=== PATIENT | female | born 1990 | race Hispanic/Latino ===

== ENCOUNTER 2018-04-07 16:16 | Emergency (ER) | payer BC ==
[~2018-04-07] VITALS: Ht 170.2 cm; Wt 99.8 kg
[2018-04-07] MEDS ORDERED: DEXAMETHASONE SOD PHOS 10 MG/1 ML VIAL IV ONE (16:30)
== END 2018-04-07 16:41 | disposition home or self-care (01) ==
LOC: ER 16:16
DX: J02.0 Streptococcal pharyngitis (principal)
CPT/HCPCS: 99283; J1100

== ENCOUNTER 2021-09-11 13:49 | Emergency (ER) | payer SELFPAY ==
[~2021-09-11] VITALS: Ht 170.2 cm; Wt 99.8 kg
[2021-09-11] MEDS ORDERED: CASIRIVIMAB/IMDEVIMAB 10 ML in SODIUM CHLORIDE 0.9% 100 ML IV ONE (15:45)
[2021-09-11] MEDS ORDERED: ACETAMINOPHEN 325 MG TAB ONE (16:13)
[2021-09-11] MEDS ORDERED: ACETAMINOPHEN 325 MG TAB PO ONE (16:30)
== END 2021-09-11 17:20 | disposition home or self-care (01) ==
LOC: ER 13:55
DX: U07.1 COVID-19 (principal)
CPT/HCPCS: 71045; 99284; J7050; U0002

== ENCOUNTER 2021-09-13 14:58 | Inpatient (IN) | payer SELFPAY ==
[~2021-09-13] VITALS: Ht 170.2 cm; Wt 97.3 kg
[2021-09-13] MEDS ORDERED: DEXAMETHASONE SOD PHOS 10 MG/1 ML VIAL IV ONE (15:45)
[2021-09-13 15:46] LABS: BASOPHILS % 0.4 % (0.0-1.0); EOSINOPHILS # (AUTO) 0.1 (0.0-0.4); EOSINOPHILS % 1.1 % (0.0-6.0); HEMATOCRIT 43.4 % (34.2-44.1); HEMOGLOBIN 13.6 g/dL (12.0-16.0); LYMPHOCYTES # (AUTO) 2.9 (1.0-3.2); LYMPHOCYTES % 53.6 % (18.0-39.1); MEAN CORPUSCULAR HEMOGLOBIN 25.5 pg (28-32); MEAN CORPUSCULAR HGB CONC 31.3 g/dL (31-35); MEAN CORPUSCULAR VOLUME 81.3 fL (81-99); MONOCYTES # (AUTO) 0.4 (0.2-0.8); MONOCYTES % 6.4 % (4.4-11.3); NEUTROPHILS # (AUTO) 2.1 (2.1-6.9); NEUTROPHILS % 37.8 % (38.7-80.0); PLATELET COUNT 241 x10e3/uL (140-360); RED BLOOD COUNT 5.34 x10e6/uL (3.6-5.1); RED CELL DISTRIBUTION WIDTH 13.3 % (11.7-14.4)
[2021-09-13 15:57] LABS: ALBUMIN 2.6 g/dL (3.5-5.0); ALBUMIN/GLOBULIN RATIO 0.6 (0.8-2.0); ANION GAP 14.8 mmol/L (8-16); CALCIUM 8.5 mg/dL (8.4-10.2); CREATININE, SERUM 0.59 mg/dL (0.57-1.11); POTASSIUM 3.8 mmol/L (3.5-5.1)
[2021-09-13 19:30] VITALS: BP 116/75
[2021-09-13] MEDS ORDERED: GUAIFENESIN/CODEINE 5 ML LIQD PO PRN (20:00)
[2021-09-13] MEDS ORDERED: ACETAMINOPHEN 325 MG TAB PO PRN (20:00)
[2021-09-13 20:49] VITALS: BP 116/75
[2021-09-13 21:08] VITALS: BP 116/75
[2021-09-13] MEDS ORDERED: DEXTROSE 50% SYRINGE 50 ML IV PRN (21:30)
[2021-09-13] MEDS ORDERED: REMDESIVIR 200MG 200 MG IV SCH (22:00)
[2021-09-13] MEDS: INSULIN LISPRO 100 UNIT/1 ML 3ML VIAL SQ SCH (22:17)
[2021-09-14] VITALS (8 sets, daily range): BP systolic 97–122; BP diastolic 56–80
[2021-09-14 05:34] LABS: BASOPHILS % 0.4 % (0.0-1.0); HEMATOCRIT 42.3 % (34.2-44.1); HEMOGLOBIN 13.3 g/dL (12.0-16.0); LYMPHOCYTES # (AUTO) 2.1 (1.0-3.2); LYMPHOCYTES % 39.6 % (18.0-39.1); MEAN CORPUSCULAR HEMOGLOBIN 25.5 pg (28-32); MEAN CORPUSCULAR HGB CONC 31.4 g/dL (31-35); MEAN CORPUSCULAR VOLUME 81.2 fL (81-99); MONOCYTES # (AUTO) 0.3 (0.2-0.8); MONOCYTES % 5.7 % (4.4-11.3); NEUTROPHILS # (AUTO) 2.8 (2.1-6.9); NEUTROPHILS % 53.2 % (38.7-80.0); PLATELET COUNT 254 x10e3/uL (140-360); RED BLOOD COUNT 5.21 x10e6/uL (3.6-5.1); RED CELL DISTRIBUTION WIDTH 13.2 % (11.7-14.4)
[2021-09-14 06:04] LABS: ALBUMIN 2.5 g/dL (3.5-5.0); ALBUMIN/GLOBULIN RATIO 0.5 (0.8-2.0); CALCIUM 8.4 mg/dL (8.4-10.2); CREATININE, SERUM 0.61 mg/dL (0.57-1.11)
[2021-09-14] MEDS: INSULIN LISPRO 100 UNIT/1 ML 3ML VIAL SQ SCH ×4 (08:30→21:00)
[2021-09-14] MEDS: ZINC SULFATE 50 MG CAP PO SCH (09:05)
[2021-09-14] MEDS: DEXAMETHASONE SOD PHOS 10 MG/1 ML VIAL IV SCH (09:05)
[2021-09-14] MEDS: ENOXAPARIN 30 MG/0.3 ML SYR SC SCH ×2 (09:05→21:00)
[2021-09-14] MEDS: ASCORBIC ACID 500 MG TAB PO SCH ×2 (09:05→17:45)
[2021-09-14] MEDS: CEFTRIAXONE 2 GM in SODIUM CHLORIDE 0.9% 100 ML IV SCH (09:05)
[2021-09-14] MEDS ORDERED: SODIUM CHLORIDE 0.9% 50ML 50 ML ONE (15:45)
[2021-09-14] MEDS: REMDESIVIR 100MG 100 MG IV SCH (17:44)
[2021-09-14] MEDS ORDERED: METFORMIN HCL500 MG PO (19:11)
[2021-09-14] MEDS ORDERED: SODIUM CHLORIDE 0.9% 250ML 250 ML ONE (21:24)
[2021-09-15] VITALS (8 sets, daily range): BP systolic 98–113; BP diastolic 65–76
[2021-09-15 07:21] LABS: BASOPHILS # (AUTO) 0.1 (0.0-0.1); BASOPHILS % 0.8 % (0.0-1.0); EOSINOPHILS % 0.6 % (0.0-6.0); HEMATOCRIT 42.9 % (34.2-44.1); HEMOGLOBIN 13.1 g/dL (12.0-16.0); LYMPHOCYTES # (AUTO) 3.5 (1.0-3.2); LYMPHOCYTES % 53.9 % (18.0-39.1); MEAN CORPUSCULAR HEMOGLOBIN 25.6 pg (28-32); MEAN CORPUSCULAR HGB CONC 30.5 g/dL (31-35); MONOCYTES # (AUTO) 0.5 (0.2-0.8); NEUTROPHILS # (AUTO) 2.3 (2.1-6.9); NEUTROPHILS % 35.6 % (38.7-80.0); PLATELET COUNT 286 x10e3/uL (140-360); RED BLOOD COUNT 5.11 x10e6/uL (3.6-5.1); RED CELL DISTRIBUTION WIDTH 13.3 % (11.7-14.4)
[2021-09-15] MEDS: INSULIN LISPRO 100 UNIT/1 ML 3ML VIAL SQ SCH ×4 (07:30→20:42)
[2021-09-15 08:07] LABS: ALBUMIN 2.6 g/dL (3.5-5.0); ALBUMIN/GLOBULIN RATIO 0.6 (0.8-2.0); ANION GAP 15.8 mmol/L (8-16); CALCIUM 8.5 mg/dL (8.4-10.2); CREATININE, SERUM 0.63 mg/dL (0.57-1.11); POTASSIUM 3.8 mmol/L (3.5-5.1)
[2021-09-15 09:00] LABS: LYMPHOCYTES % (MANUAL) 52 % (19-48); MONOCYTES % (MANUAL) 8 % (3.4-9.0); NEUTROPHILS % (MANUAL) 39 % (40-74); PLATELET ESTIMATE ADEQUATE; PLATELET MORPHOLOGY COMMENT FEW LARGE; RBC MORPHOLOGY COMMENT NORMAL
[2021-09-15] MEDS: DEXAMETHASONE SOD PHOS 10 MG/1 ML VIAL IV SCH (09:23)
[2021-09-15] MEDS: ENOXAPARIN 30 MG/0.3 ML SYR SC SCH ×2 (09:23→20:41)
[2021-09-15] MEDS: ZINC SULFATE 50 MG CAP PO SCH (09:23)
[2021-09-15] MEDS: CEFTRIAXONE 2 GM in SODIUM CHLORIDE 0.9% 100 ML IV SCH (09:23)
[2021-09-15] MEDS: ASCORBIC ACID 500 MG TAB PO SCH ×2 (09:23→17:49)
[2021-09-15] MEDS: BENZONATATE 100 MG CAP PO PRN ×2 (10:11→21:58)
[2021-09-15] MEDS ORDERED: GUAIFENESIN/CODEINE 5 ML LIQD PO PRN (12:00)
[2021-09-15] MEDS ORDERED: SODIUM CHLORIDE 0.9% 100 ML ONE (17:23)
[2021-09-15] MEDS: REMDESIVIR 100MG 100 MG IV SCH (17:49)
[2021-09-16] VITALS: BP 129/80
[2021-09-16 04:00] VITALS: BP 115/69
[2021-09-16 08:00] VITALS: BP 121/85
[2021-09-16] MEDS: CEFTRIAXONE 2 GM in SODIUM CHLORIDE 0.9% 100 ML IV SCH (08:19)
[2021-09-16] MEDS: DEXAMETHASONE SOD PHOS 10 MG/1 ML VIAL IV SCH (08:19)
[2021-09-16] MEDS: ENOXAPARIN 30 MG/0.3 ML SYR SC SCH (08:20)
[2021-09-16] MEDS: ASCORBIC ACID 500 MG TAB PO SCH (08:20)
[2021-09-16] MEDS: ZINC SULFATE 50 MG CAP PO SCH (08:20)
[2021-09-16 08:42] LABS: BASOPHILS % 0.5 % (0.0-1.0); EOSINOPHILS % 0.5 % (0.0-6.0); HEMATOCRIT 45.7 % (34.2-44.1); HEMOGLOBIN 14.2 g/dL (12.0-16.0); LYMPHOCYTES % 45.5 % (18.0-39.1); MEAN CORPUSCULAR HEMOGLOBIN 25.7 pg (28-32); MEAN CORPUSCULAR HGB CONC 31.1 g/dL (31-35); MEAN CORPUSCULAR VOLUME 82.8 fL (81-99); MONOCYTES # (AUTO) 0.8 (0.2-0.8); MONOCYTES % 9.2 % (4.4-11.3); NEUTROPHILS # (AUTO) 3.8 (2.1-6.9); PLATELET COUNT 316 x10e3/uL (140-360); RED BLOOD COUNT 5.52 x10e6/uL (3.6-5.1); RED CELL DISTRIBUTION WIDTH 13.2 % (11.7-14.4)
[2021-09-16] MEDS ORDERED: INSULIN GLARGINE 100 UNITS/ML VIAL SQ SCH (09:00)
[2021-09-16 09:01] LABS: ALBUMIN 2.8 g/dL (3.5-5.0); ALBUMIN/GLOBULIN RATIO 0.6 (0.8-2.0); ANION GAP 14.6 mmol/L (8-16); CALCIUM 8.7 mg/dL (8.4-10.2); CREATININE, SERUM 0.64 mg/dL (0.57-1.11); POTASSIUM 3.6 mmol/L (3.5-5.1)
[2021-09-16] MEDS: INSULIN LISPRO 100 UNIT/1 ML 3ML VIAL SQ SCH ×2 (10:17→12:36)
[2021-09-16 12:00] VITALS: BP 124/88
[2021-09-16] MEDS ORDERED: ASCORBIC ACID500 MG PO (13:19)
[2021-09-16] MEDS ORDERED: Zinc Sulfate PO (13:19)
[2021-09-16] MEDS ORDERED: LANTUS 3ML100 UNITS/ SQ (13:19)
[2021-09-16] MEDS ORDERED: DEXAMETHASONE4 MG PO (13:19)
[2021-09-16] MEDS ORDERED: TESSALON PERLE100 MG PO (13:19)
[2021-09-16] MEDS ORDERED: GUAIFEN-CODEINE5 ML PO (13:19)
[2021-09-16 13:37] LABS: BAND NEUTROPHILS % (MANUAL) 1 %; EOSINOPHILS % (MANUAL) 1 % (0-7); LYMPHOCYTES % (MANUAL) 59 % (19-48); MONOCYTES % (MANUAL) 3 % (3.4-9.0); NEUTROPHILS % (MANUAL) 36 % (40-74); PLATELET ESTIMATE ADEQUATE; PLATELET MORPHOLOGY COMMENT FEW GIANT
[2021-09-16 13:38] LABS: RBC MORPHOLOGY COMMENT NORMAL
[2021-09-16] MEDS ORDERED: SODIUM CHLORIDE 0.9% 100 ML ONE (13:40)
[2021-09-16] MEDS: REMDESIVIR 100MG 100 MG IV SCH (14:37)
== END 2021-09-16 15:51 | disposition home or self-care (01) | DRG 177 ==
LOC: ER 15:01 → ERHOLD 17:06 → MED/SURG3 19:17
PROVIDERS: ADMIT Internal Medicine; ATTEND Internal Medicine
PROC: 3E0333Z Introduction of Anti-inflammatory into Peripheral Vein, Percutaneous Approach (ICD-10-PCS; principal; 2021-09-13)
PROC: XW033E5 Introduction of Remdesivir Anti-infective into Peripheral Vein, Percutaneous Approach, New Technology Group 5 (ICD-10-PCS; 2021-09-13)
DX: U07.1 COVID-19 (principal); J12.82 Pneumonia due to coronavirus disease 2019; J96.01 Acute respiratory failure with hypoxia; E11.9 Type 2 diabetes mellitus without complications; E66.9 Obesity, unspecified; Z68.33 Body mass index [BMI] 33.0-33.9, adult; Z79.4 Long term (current) use of insulin
CPT/HCPCS: 36415; 71045; 80053; 82728; 82948; 84702; 85025; 94799; 96372; 99284; J0456; J0696; J1100; J1650; J7050; U0002